=== PATIENT | female | born 1985 ===

== ENCOUNTER 2024-09-12 11:42 | Emergency (ER) | payer OTHER, SELFPAY ==
--- NOTE | ~2024-09-12 | CT_ITS ---
CLINICAL HISTORY: abd pain, nausea, vomiting CT abdomen and pelvis with contrast Comparison: None provided Findings: No consolidation or effusion. Unremarkable gallbladder. No biliary ductal dilatation. 4 mm hypodense round lesion in the dome of the liver posteriorly which is too small to be fully characterized. The spleen, pancreas, adrenal glands and kidneys are unremarkable. No ureteral stones and no hydronephrosis or hydroureter. No perinephric stranding. No bowel obstruction, pneumoperitoneum, or pneumatosis. Moderate stool in the cecum and ascending colon and in the rectum. Appendix not clearly identified. No pericecal inflammation. Uterus and left adnexa within normal limits. 1.8 cm right ovarian cyst likely physiologic. No free fluid. Abdominal aorta normal in sizeNo acute fracture. IMPRESSION: No acute findings. This document has been electronically signed by: Judith Gates MD on 09/12/2024 18:43:58
[2024-09-12 12:19] VITALS: BP 167/108; PULSE 82; RESP 18; TEMP 37; O2SAT 100; BMI 25.4
--- NOTE | 2024-09-12 12:19 | ED_ITS ---
HPI - Nausea/Vomiting/Diarrhea General Chief complaint: Nausea/Vomiting/Diarrhea Stated complaint: vomiting Time Seen by Provider: 09/12/24 14:36 Source: patient Mode of arrival: ambulatory Limitations: no limitations History of Present Illness ED Provider: Sebastián Pyle PA-C HPI Narrative: 39-year-old female without significant medical history presents to the ED today due to 2 days of nausea and vomiting. Reports eating a fish sandwich for lunch on Monday and symptoms began later that night. Patient reports having numerous episodes of large volume vomitus without evidence of blood. Patient reports yesterday while sleeping she was awoken from her sleep with periumbilical cramping abdominal pain, and immediately had to vomit. She reports 5-6 episodes of vomiting today. States she has decreased appetite and is unable to keep food or liquids down since Monday. She went to today who encouraged her to come to the ED due to abdominal pain to palpation during examination and recommended further evaluation. Denies sick contacts, recent travel, recent antibiotic use, chest pain, shortness of breath, bloody/bilious emesis, diarrhea, black/tarry stool. MD elicited complaint: nausea, vomiting and abdominal pain Onset (ago): day(s) (2) Description of vomiting: food contents and watery Associated nausea: Yes Quality: cramping and aching Exacerbating factors: none Relieving factors: none Associated symptoms: nausea/vomiting Related Data Allergies Allergy/AdvReac Type Severity Reaction Status Date / Time bee pollen (bee stings) Allergy Hives Verified 09/12/24 12:23 Seasonal Allergies Allergy Itchy Eyes Verified 09/12/24 12:23 pet dander Allergy Itching Uncoded 09/12/24 12:23 Review of Systems 2 Review of Systems: CONST: Negative for fever, body aches and chills. HENT: Negative for neck pain/stiffness, headache, congestion, sore throat, swelling. EYES: Negative for discharge/pain or vision changes. RESP: Negative for cough/hemoptysis and shortness of breath. CV: Negative chest pain, difficulty breathing, palpitations. ABD: POS periumbilical pain, nausea, vomiting. : Negative increase frequency, dysuria, blood in urine or stool. MUSC: Negative for muscle aches, edema. SKIN: Negative rash, lesions/sores. NEURO: Negative headache, dizziness, weakness. Gastrointestinal: Gastrointestinal: Reports nausea PMFSH Past Medical History Attestation statement: The following information was validated with the patient. Source: old records reviewed and nursing notes reviewed Social History Social History Alcohol intake: never Smoked in Last 30 Days: No Use of substances other than those prescribed or required for medical reasons: No Advance Directives: No Advance Directives Information Provided: Yes Do you have a plan to hurt others: No Plan Patient : No Physical Exam 2 Vital Signs: Vital Signs: Last Vital Signs Temp 98.1 F 09/12/24 14:56 Pulse 78 09/12/24 18:15 Resp 18 09/12/24 18:15 BP 167/89 H 09/12/24 18:15 Pulse Ox 99 09/12/24 18:15 O2 Del Method Room Air 09/12/24 18:15 BMI result Body Mass Index 25.4 GENERAL APPEARANCE: ?AxOx4, generally well-appearing, no acute distress. HEENT: ?NC, AT. MMM. EOMI, clear conjunctiva, oropharynx clear. HEART:? Normal rate and regular rhythm, normal S1/S1, no m/r/g LUNGS:? CTAB, moving air well. No crackles or wheezes are heard. ABDOMEN: ?Soft, nondistended with good bowel sounds heard in all 4 quadrants. Mild TTP of the RUQ, no guarding, no rigidity, no overlying skin changes. BACK: No CVAT, no obvious deformity. EXTREMITIES: ?Without cyanosis, clubbing or edema. NEUROLOGICAL: ?Grossly nonfocal. Alert and oriented, moving all 4 extremities. Observed to ambulate with normal gait. Skin: ?Warm and dry without any rash. Course Course Course Narrative: This is an RME: Additional HPI, ROS, PE not included below will be deferred to primary provider. RME assessment and note performed by: Fidelia Denton PA-C This is a [id number]-female, with no known medical problems, who presents to the ER with complaints of nausea and vomiting x 2 days. Reports that she is not having any abdominal pain. Reports that she went to urgent care this afternoon and was told to come into the ED for further eval. Endorsing subjective fevers and chills. No chance of . No hx of HTN. Had a fish sandwich on monday morning. No diarrhea. No hx of HTN > blood pressure 167/108. Was previously on Wegovy but has not had a dose since May. Plan: Labs, UA, further Er eval needed Medications Administered Discontinued Medications Generic Name Dose Route Start Last Admin Trade Name Lashawn PRN Reason Stop Dose Admin Lactated Ringer's 1,000 mls @ 999 mls/hr 09/12/24 14:55 09/12/24 18:46 Lr IV 09/12/24 15:55 Infused .Q1H1M ONE Infusion Iohexol 100 ml 09/12/24 16:55 09/12/24 16:56 Iohexol 350 Mg/Ml 100 Ml Infus..Btl IV 09/12/24 16:56 85 ml ONCE ONE Administration Ondansetron HCl 4 mg 09/12/24 14:55 09/12/24 15:08 Ondansetron Hcl 4 Mg/2 Ml Vial IVPUSH 09/12/24 14:56 4 mg ONCE ONE Administration Pantoprazole Sodium 40 mg 09/12/24 15:03 09/12/24 15:09 Pantoprazole Sodium 40 Mg/10 Ml Vial IVPUSH 09/12/24 15:04 40 mg ONCE ONE Administration Medical Decision Making Medical Decision Making MDM Narrative: 39-year-old female without significant medical history presents to the ED today due to 2 days of nausea and vomiting. Reports eating a fish sandwich for lunch on Monday and symptoms began later that night. Patient reports having numerous episodes of large volume vomitus without evidence of blood. Patient reports yesterday while sleeping she was awoken from her sleep with periumbilical abdominal pain, and immediately had to vomit. She reports 5-6 episodes of vomiting today. States she has decreased appetite and is unable to keep food or liquids down since Monday. She went to today who encouraged her to come to the ED due to abdominal pain to palpation during examination and recommended further evaluation. VSS, in no acute distress, nontoxic appearing. Physical exam of the abdomen reveals TTP over the right upper quadrant, no rebound tenderness, no guarding, no rigidity. Labs revealed leukocytosis at 15.8. Obtaining CT scan of abdomen and pelvis with contrast to evaluate for acute abdomen. Awaiting results. Started the patient on IV fluids, 4 mg IV Zofran, 40 mg IV pantoprazole to manage nausea with good effect. CT does not reveal acute abdomen. At this time I believe this is most likely food borne illness occurring after ingestion of fish sandwich. Gave patient p.o. challenge with ciara nadira and crackers. Counseled patient on supportive care, hydration, bland diet and advance as tolerated, and follow up with PCP to ensure improvement and to discuss possible hypertension. Differential Diagnosis Differential Diagnoses: The differential diagnosis associated with the presentation includes Biliary disease Appendicitis Food-borne illness Gastritis Pancreatitis Admission/Observation Consideration of admission/observation: Escalation of care including admission/observation considered Lab Data MDM Lab Attestation statement: I reviewed the patient's lab results. 09/12/24 12:56 09/12/24 12:56 Labs: Lab Results 09/12/24 Range/Units 12:56 WBC 15.8 H (4.8-10.8) X10*3/uL RBC 5.46 (4.20-5.50) X10*6/uL Hgb 15.3 (12.0-16.0) g/dl Hct 45.6 (37.0-47.0) % MCV 83.5 (80.0-98.0) fL MCH 28.0 (27.0-33.0) pg MCHC 33.6 (31.0-35.0) g/dl RDW 11.9 (11.0-16.0) % Plt Count 467 H (160-400) X10*3/uL MPV 8.5 L (9.4-12.3) fL Immature Gran % (Auto) 0.4 (0.0-0.4) % Neut % (Auto) 75.4 H (45-73) % Lymph % (Auto) 19.1 L (20-40) % [place] % (Auto) 4.6 (2-11) % Eos % (Auto) 0.1 (0-4) % Baso % (Auto) 0.4 (0-2) % Lymph # (Auto) 3.0 (1.2-4.9) X10*3/uL [place] # (Auto) 0.7 (0.1-1.2) X10*3/uL Eos # (Auto) 0.0 (0.0-0.4) X10*3/uL Baso # (Auto) 0.1 (0.0-0.2) X10*3/uL Abs Immat Gran (auto) 0.06 H (0.00-0.03) X10*3/uL Absolute Neuts (auto) 11.9 H (2.0-8.3) x10*3/uL Absolute Nucleated RBC 0.000 (0.0-0.012) X10*3/uL Nucleated RBC % (auto) 0.0 (0.0-0.2) /100WBC Sodium 139 (135-145) mmol/L Potassium 3.7 (3.3-5.1) mmol/L Chloride 104 (96-108) mmol/L Carbon Dioxide 25 (22-29) mmol/L Anion Gap 14 (12-20) BUN 15 (9-16) mg/dL Creatinine 0.80 (0.5-1.4) mg/dL Estim Creat Clear Calc 90.7 Estimated GFR > 60 Random Glucose 83 (60-115) mg/dL Calcium 9.9 (8.4-10.2) mg/dL Magnesium 2.1 (1.6-2.6) mg/dL Total Bilirubin 0.6 (0.0-1.0) mg/dL Direct Bilirubin 0.2 (0.0-0.5) mg/dL AST 22 (5-31) U/L ALT 13 (0-31) U/L Alkaline Phosphatase 86 (39-117) U/L Total Protein 8.5 H (6.5-8.0) g/dL Albumin 5.0 (3.5-5.0) g/dL Lipase 5 L (8-78) U/L Beta HCG, Quant < 2 mIU/mL Urine Color Dark Yellow Urine Appearance Cloudy Urine pH 6.0 (5.0-9.0) Ur Specific [place] >= 1.030 H (1.005-1.025) Urine Protein 100 (2+) H (Neg-Trace) mg/dL Urine Glucose (UA) Negative (Negative) mg/dL Urine Ketones 40 (Negative) mg/dL Urine Blood Moderate (2+) H (Negative) Urine Nitrite Negative (Negative) Ur Leukocyte Esterase Negative (Negative) Urine RBC 0-2 (0-2) /HPF Urine WBC 0-5 (0-5) /HPF Ur Squamous Epith Cells 11-20 (0-2) /HPF Urine Bacteria 1+ (None Seen) Hyaline Casts 0-2 (0-2) /LPF Independent Interpretation I performed an independent interpretation of an: CT Scan Radiology Impression Discussion of test interpretation with radiology: I have reviewed the radiologist's reading. Radiologist Impression: Findings: No consolidation or effusion. Unremarkable gallbladder. No biliary ductal dilatation. 4 mm hypodense round lesion in the dome of the liver posteriorly which is too small to be fully characterized. The spleen, pancreas, adrenal glands and kidneys are unremarkable. No ureteral stones and no hydronephrosis or hydroureter. No perinephric stranding. No bowel obstruction, pneumoperitoneum, or pneumatosis. Moderate stool in the cecum and ascending colon and in the rectum. Appendix not clearly identified. No pericecal inflammation. Uterus and left adnexa within normal limits. 1.8 cm right ovarian cyst likely physiologic. No free fluid. Abdominal aorta normal in sizeNo acute fracture. IMPRESSION: No acute findings. This document has been electronically signed by: Judith Gates MD on 09/12/2024 18:43:58 Dictated By: Judith Gates MD Signed By: <Electronically signed by Judith Gates MD in OV> 09/12/24 1845 External Record Review External record reviewed: Inpatient record, Office record and Outpatient record Discharge Plan Discharge Clinical Impression: Food poisoning Patient Disposition: Home, Self-Care Instructions: Foodborne Illness (DC) Additional Instructions: You were evaluated in the emergency department today due to abdominal pain, nausea, vomiting. Your lab work showed that you had an increase of white blood cells this can occur due to vomiting. Your urinalysis was not concerning for infection. You had a CT scan of your abdomen and pelvis which was negative for any acute emergent findings. I believe at this time you have a food-borne illness from the sandwich to eat on Monday as your symptoms started soon after. While in the department you were given IV fluids, 40 mg IV pantoprazole for acidic stomach, 4 mg IV Zofran for nausea. You should stay hydrated, water, Gatorade, Pedialyte. You should eat a bland diet consisting of bananas, rice, apples, toast and advance as tolerated. Please follow up with your PCP and discuss possible hypertension as your blood pressure was slightly elevated while in the department. Please return to the emergency department if you experience fever over 100.4?, increased abdominal pain, increased vomiting, increased nausea, blood in the vomit, blood in the stool, or any other new/worsening/concerning symptoms. Print Language: Persian
[2024-09-12 13:13] LABS: MANUAL DIFF FLAG NO
[2024-09-12 13:14] LABS: Basophils Absolute Auto 0.1 X10*3/uL (0.0-0.2); Basophils Percent Auto 0.4 % (0-2); Eosinophils Percent Auto 0.1 % (0-4); Hematocrit 45.6 % (37.0-47.0); Hemoglobin 15.3 g/dl (12.0-16.0); Imm Gran Abs Auto 0.06 X10*3/uL (0.00-0.03); Imm Gran Pct Auto 0.4 % (0.0-0.4); Lymphocytes Percent Auto 19.1 % (20-40); Mean Corpuscular HGB Conc 33.6 g/dl (31.0-35.0); Mean Corpuscular Volume 83.5 fL (80.0-98.0); Mean Platelet Volume 8.5 fL (9.4-12.3); Monocytes Absolute Auto 0.7 X10*3/uL (0.1-1.2); Monocytes Percent Auto 4.6 % (2-11); Neutrophils Absolute Auto 11.9 x10*3/uL (2.0-8.3); Neutrophils Percent Auto 75.4 % (45-73); Platelet Count 467 X10*3/uL (160-400); Red Blood Count 5.46 X10*6/uL (4.20-5.50); Red Cell Distribution Width 11.9 % (11.0-16.0); White Blood Count 15.8 X10*3/uL (4.8-10.8)
[2024-09-12 13:16] LABS: Appearance Urine Cloudy; Color Urine Dark Yellow; Glucose Urine UA Negative (Negative); Leukocyte Esterase Urine Negative (Negative); Nitrite Urine Negative (Negative); Specific Gravity - Urine >= 1.030 (1.005-1.025); UMIC TRIGGER UACC YES; Urine Blood Moderate (2+) (Negative); Urine Ketones 40 mg/dL (Negative); Urine Protein 100 (2+) mg/dL (Neg-Trace)
[2024-09-12 13:30] LABS: Bacteria Urine 1+ (None Seen); Hyaline Casts Urine 0-2 /LPF (0-2); RBC Urine 0-2 /HPF (0-2); WBC Urine 0-5 /HPF (0-5)
[2024-09-12 13:42] LABS: Alanine Aminotransferase 13 U/L (0-31); Alkaline Phosphatase 86 U/L (39-117); Anion Gap 14 (12-20); Aspartate Amino Transferase 22 U/L (5-31); Bilirubin Direct 0.2 mg/dL (0.0-0.5); Bilirubin Total 0.6 mg/dL (0.0-1.0); Blood Urea Nitrogen 15 mg/dL (9-16); Calcium 9.9 mg/dL (8.4-10.2); Carbon Dioxide 25 mmol/L (22-29); Chloride 104 mmol/L (96-108); Creatinine Clr Calc Pharmacy 90.7; Estimated Glomerular Filt Rate > 60; Glucose Random 83 mg/dL (60-115); HCG Quantitative < 2 mIU/mL; Lipase 5 U/L (8-78); Magnesium 2.1 mg/dL (1.6-2.6); Potassium 3.7 mmol/L (3.3-5.1); Sodium 139 mmol/L (135-145); Total Protein 8.5 g/dL (6.5-8.0)
[2024-09-12 14:56] VITALS: TEMP 36.7
[2024-09-12] MEDS: ondansetron HCL 4 MG/2 ML VIAL IVPUSH (15:08)
[2024-09-12] MEDS: Pantoprazole Sodium 40 MG/10 ML VIAL IVPUSH (15:09)
[2024-09-12] MEDS: Lactated Ringers 1,000 ML 999 ML IV (15:09)
[2024-09-12] MEDS: iohexoL 350 MG/ML 100 ML INFUS..BTL IV (16:56)
[2024-09-12 18:15] VITALS: BP 167/89; PULSE 78; RESP 18; O2SAT 99
--- OUTSIDE RECORDS SUMMARY | 2024-09-12 18:19 | XMS_ITS | Clinical Summary ---
Author Organization [facility] Address [address] [place] [address] Phone Care Team Providers Care Maintenance Of Way Supervisor Name Role Phone Susana Meléndez [employer] MACHINE OPERATOR Primary Care Provider [phone] Allergies No known active allergies Medications albuterol HFA (PROAIR HFA ; PROVENTIL HFA ; VENTOLIN HFA) 90 mcg/actuation inhaler Inhale 2 puffs every 4 (four) hours if needed for wheezing or shortness of breath. 6.7 g Active Medical History Medical History Date Comments Hypertension Cancer ([facility]/HCC V24, CMS/HCC V28) Social History Tobacco Use Types Packs/Day Years Used Date Smoking Tobacco: Never Assessed Comments Unknown Sex and Gender Information Value Date Recorded Sex Assigned at Not on file Legal Sex Female 3:14 PM EDT Gender Identity Not on file Sexual Orientation Not on file Obstetrics History Last Filed Vital Signs Vital Sign Reading Time Taken Comments Blood Pressure 134/99 02/09/2022 8:40 PM EST Pulse 100 02/09/2022 8:40 PM EST Temperature 37.5 C (99.5 F) 02/09/2022 8:40 PM EST Respiratory Rate 18 02/09/2022 8:40 PM EST Oxygen Saturation 99% 02/09/2022 8:40 PM EST Inhaled Oxygen Concentration - - Weight 109 kg (239 lb 3.2 oz) 02/09/2022 8:40 PM EST Height 162.6 cm (5' 4 ) 02/09/2022 8:40 PM EST Body Mass Index 41.06 02/09/2022 8:40 PM EST Plan of Treatment Upcoming Encounters Date Type Department Care Team (Late st Contact Info) Description 10/09/2024 2:30 PM EDT Office Visit Adult Medicine [facility] [place] [address], [place] [phone] Gloria Varela NP [address], [place] Health Maintenance Due Date Last Done Comments DTaP,Tdap,and Td Vaccines (1 - Tdap) 2006 Hepatitis B Vaccines (1 of 3 - 19+ 3-dose series) 2006 Cervical Cancer Screening: Pap Smear 02/07/2008 Depression Screening 02/09/2022 HIV Screening 02/09/2022 Hepatitis C Screening 02/09/2022 Social Influencers of Health Screening 02/09/2022 COVID-19 Vaccine ( season) 2023 09/11/2021, 11/08/2020, 04/16/2020, Additional history exists Hypertension/CHF/CAD Annual BMP Blood Test 05/08/2024 Influenza Vaccine (Season Ended) 2024 11/20/2021, 06/21/2021, 12/01/2019, Additional history exists Cholesterol Screening (Lipid Panel) 10/14/2025 10/14/2020 Varicella Vaccines Aged Out 11/18/2021, 10/12/2021 No longer eligible based on patient's age to complete this topic HIB Vaccines Aged Out No longer eligi ble based on patient's age to complete this topic HPV Vaccines Aged Out No longer eligi ble based on patient's age to complete this topic Hepatitis A Vaccines Aged Out No long er eligible based on patient's age to complete this topic IPV Vaccines Aged Out No longer eligi ble based on patient's age to complete this topic MMR Vaccines Aged Out No longer eligi ble based on patient's age to complete this topic Meningococcal ACWY Vaccine Aged Out N o longer eligible based on patient's age to complete this topic Meningococcal B Vaccine Aged Out No l onger eligible based on patient's age to complete this topic Pneumococcal Vaccine: Pediatrics (0 to 5 Years) and At-Risk Patients (6 to 64 Years) Aged Out No longer eligible based on patient's age to complete this topic RSV Immunization Patients Under 20 months Aged Out No longer eligible based on patient's age to complete this topic Insurance [facility] Care Teams Maintenance Of Way Supervisor Relationship Specialty Start Date End Date Susana Meléndez FNP [address] [place] [phone] PCP - General Family Medicine 02/09/22
[2024-09-12 19:32] VITALS: BP 167/89; PULSE 78; RESP 18; TEMP 36.7; O2SAT 99
== END 2024-09-12 19:33 | disposition home or self-care (01) ==
PROVIDERS: Physician Assistant Medical; Emergency Provider Emergency Medicine
DX: A05.9 Bacterial foodborne intoxication, unspecified (principal); R11.2 Nausea with vomiting, unspecified; R10.2 Pelvic and perineal pain; Z79.899 Other long term (current) drug therapy
CPT/HCPCS: 36415; 74177; 80048; 80076; 81001; 83690; 83735; 84702; 85025; 96361; 96374; 96375; 99284; J2405; J2470; J7120; Q9967

== ENCOUNTER → 2024-09-12 14:57 | Outpatient (BNV) | payer OTHER, SELFPAY | PROVIDERS: Emergency Provider Emergency Medicine; Visit Provider Specialist | DX: R10.9 Unspecified abdominal pain (principal); R11.2 Nausea with vomiting, unspecified | CPT/HCPCS: 74177 ==